=== PATIENT | male | born 1995 | race Two or more races ===

== ENCOUNTER 2018-05-04 08:04 | Emergency (ER) | payer OTHER ==
[2018-05-04 08:13] VITALS: BP 150/85
[2018-05-04] MEDS ORDERED: PROPARACAINE 0.5% OPHTH DROPS 15 ML EACHEYE STA (08:14)
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
== END 2018-05-04 08:30 | disposition home or self-care (01) ==
LOC: ED 08:04
DX: S05.02XA Injury of conjunctiva and corneal abrasion without foreign body, left eye, initial encounter (principal); W22.8XXA Striking against or struck by other objects, initial encounter
CPT/HCPCS: 99282; 99283; J3490

== ENCOUNTER 2019-07-14 08:55 | Emergency (ER) | payer OTHER ==
[2019-07-14 09:04] VITALS: BP 146/76
--- NOTE | 2019-07-14 09:58 | ED Physician Documentation ---
History of Present Illness - Stated complaint Stated Complaint: INSECT BITES - Chief complaint Chief Complaint: Wound - History obtained from History obtained from: Patient - History of Present Illness Timing: How many days ago (several) Pain level max: 1 Pain level now: 1 - Additonal information Additional information: 24-year-old male states that he had red raised pustules on his face, states that he squeezed them, clear fluid came out and now the swelling is decreasing. Concerned about a possible MRSA infection as he is leaving on a trip tomorrow. Better with drainage, nothing makes it worse Review of Systems Constitutional: denies: Fever GI: denies: Vomiting PD PAST MEDICAL HISTORY - Past Medical History Past Medical History: No - Past Surgical History Past Surgical History: Yes HEENT: Tonsil/Adenoidectomy - Present Medications Home Medications: Ambulatory Orders Medication Instructions Recorded Confirmed Clindamycin HCl [Clindamycin 300MG 300 mg PO Q6H #28 capsule 07/14/19 CAP] - Allergies Allergies/Adverse Reactions: Allergies Allergy/AdvReac Type Severity Reaction Status Date / Time Sulfa (Sulfonamide Allergy Anaphylaxis Verified 07/14/19 09:00 Antibiotics) - Social History Does the pt smoke?: No Smoking Status: Never smoker Does the pt drink ETOH?: Yes Does the pt have substance abuse?: Yes Substance Use and Type: Marijuana - Immunizations Immunizations are current?: Yes PD ED PE NORMAL - Vitals Vital signs reviewed: Yes - General General: Alert and oriented X 3, No acute distress - HEENT HEENT: Moist mucous membranes - Derm Derm: Warm and dry, Other (3 small pustules to the left forehead. Minimal surrounding erythema. No drainage) - Neuro Neuro: Alert and oriented X 3 - Psych Psych: Normal mood, Normal affect Results - Vitals Vitals: Vital Signs - 24 hr 07/14/19 09:01 Temperature 36.6 C Heart Rate 72 Respiratory 18 Rate Blood Pressure 146/76 H O2 Saturation 98 Oxygen O2 Source Room air PD MEDICAL DECISION MAKING - ED course Complexity details: considered differential, d/w patient ED course: 24-year-old male with small pustules on the forehead. Noted minimal cellulitis. We will place him on clindamycin and have him reevaluated. Afebrile. Patient counseled regarding signs and symptoms for which I believe and urgent re- evaluation would be necessary. Patient with good understanding of and agreement to plan and is comfortable going home at this time Departure - Departure Disposition: 01 Home, Self Care Clinical Impression: Pustule Condition: Good Instructions: ED Staph Infec Abx Tx Only Follow-Up: your,doctor in 1 week if not better [Other] Prescriptions: Clindamycin HCl [Clindamycin 300MG CAP] 300 mg PO Q6H #28 capsule Comments: Start the antibiotics if this worsens over the next 24 hours. Return if you worsen. Take all antibiotics until gone. Discharge Date/Time: 07/14/19 10:03
== END 2019-07-14 10:03 | disposition home or self-care (01) ==
LOC: ED 08:55
DX: L08.9 Local infection of the skin and subcutaneous tissue, unspecified (principal)
CPT/HCPCS: 99282; 99284